=== PATIENT | female | born 1995 | race Caucasian/White ===

== ENCOUNTER 2020-02-23 00:04 | Inpatient (IN) | payer OTHER, BC ==
[~2020-02-23] VITALS: Ht 162.6 cm; Wt 76.0 kg
[2020-02-23] MEDS ORDERED: PRENATAL VITAM1 EAC6 PO (01:14)
--- NOTE | 2020-02-24 09:22 | PR ---
[facility] [address] [place] [address] Signed PP Progress Notes Datetime Report Generated by CPN: 02/24/2020 09:22 SUBJECTIVE: [id number] Pain: Within normal limits Nausea/Vomiting: Denies Vital Signs: [id number] Vital Signs: Reviewed; Within Normal Limits Notable Details: PP Hgb/Hct = 10.4/32.3 EXAM: [id number] Abdomen/Uterus: Normal Lochia: Normal Extremities: Normal IMPRESSION/PLAN/PROCEDURES: [id number] Impression: Normal progression Plan: Discharge Procedures: None Signing Physician: Ivan Grady MD Copies: ~ *Electronically Signed* 02/24/20921 IVAN GRADY MD PATIENT NAME: DENIA FERNÁNDEZ PROGRESS NOTE DATE OF : 95 PHYSICIAN: IVAN GRADY MD RPT #: [id number] REPORT IS CONFIDENTIAL AND NOT TO BE RELEASED WITHOUT AUTHORIZATION
== END 2020-02-24 12:25 | disposition home or self-care (01) | DRG 807 ==
LOC: FBC 00:04
PROVIDERS: ADMIT General Practice
PROC: 10E0XZZ Delivery of Products of Conception, External Approach (ICD-10-PCS; principal; 2020-02-23)
PROC: 0HQ9XZZ Repair Perineum Skin, External Approach (ICD-10-PCS; 2020-02-23)
PROC: 0UQMXZZ Repair Vulva, External Approach (ICD-10-PCS; 2020-02-23)
PROC: 3E0P7VZ Introduction of Hormone into Female Reproductive, Via Natural or Artificial Opening (ICD-10-PCS; 2020-02-23)
PROC: 00HU33Z Insertion of Infusion Device into Spinal Canal, Percutaneous Approach (ICD-10-PCS; 2020-02-23)
PROC: 3E0R3BZ Introduction of Anesthetic Agent into Spinal Canal, Percutaneous Approach (ICD-10-PCS; 2020-02-23)
DX: O76 Abnormality in fetal heart rate and rhythm complicating labor and delivery (principal); Z37.0 Single live birth; O43.193 Other malformation of placenta, third trimester; Z3A.40 40 weeks gestation of pregnancy; O71.82 Other specified trauma to perineum and vulva; O70.0 First degree perineal laceration during delivery
CPT/HCPCS: 01960; 36415; 85027; A9270; J2590; J2795; J3010